=== PATIENT | female | born 1960 | race Hispanic/Latino ===

== ENCOUNTER 2017-06-19 06:25 | Day surgery (SDC) | payer MEDICAID ==
[2017-06-15 14:25] VITALS: BP 134/63
[2017-06-15 14:33] LABS: BASOPHILS % (AUTO) 0.8 % (0.0-5.0); EOSINOPHILS % (AUTO) 1.3 % (0.0-8.0); HEMATOCRIT 39.8 % (36-48); LYMPHOCYTES % (AUTO) 18.2 % (21.0-51.0); MEAN CORPUSCULAR HEMOGLOBIN 29.4 pg (27.0-33.0); MEAN CORPUSCULAR HGB CONC 33.3 g/dL (32.0-36.0); MEAN CORPUSCULAR VOLUME 88.4 fL (79-99); MONOCYTES % (AUTO) 5.5 % (3.0-13.0); NEUTROPHILS % (AUTO) 74.2 % (40.0-77.0); PLATELET COUNT (AUTO) 365 K/uL (130-400); WHITE BLOOD COUNT (AUTO) 15.1 K/uL (4.8-10.8)
[2017-06-15 14:39] LABS: APPEARANCE,URINE Clear (CLEAR); BILIRUBIN,URINE Negative (NEGATIVE); COLOR,URINE Yellow (YELLOW); GLUCOSE, URINE (UA) Negative (NEGATIVE); KETONES,URINE Negative (NEGATIVE); LEUKOCYTE ESTERASE ,URINE Trace (NEGATIVE); NITRATE,URINE Negative (NEGATIVE); OCCULT BLOOD,URINE Negative (NEGATIVE); PROTEIN,URINE Negative (NEGATIVE)
[2017-06-15 14:49] LABS: CREATININE 0.9 mg/dL (0.5-1.5)
[2017-06-15 15:01] LABS: BACTERIA,URINE Few /HPF (None Seen); RBC,URINE 0-1 /HPF (0-1); SQUAMOUS EPITHELIAL CELL,UR Few /HPF (0-2)
[~2017-06-19] VITALS: Ht 162.6 cm; Wt 134.2 kg
[2017-06-19] VITALS (13 sets, daily range): BP systolic 117–149; BP diastolic 50–93
[~2017-06-19 06:25] MED LIST: ALBU90AE IH; ASPI-555 PO; ESCI20TA36 PO; ESOM40CA PO; FURO20TA6 PO; PRAV20TA4 PO
[2017-06-19] MEDS ORDERED: LACTATED RINGERS 1000ML 1,000 ML IV ONE (07:21)
[2017-06-19] MEDS: CEFAZOLIN SODIUM 1 GM VIAL IVP SCH ×2 (08:00→09:32)
[2017-06-19] MEDS ORDERED: NEOSTIGMINE 5MG/5ML SYR IV ONE (09:03)
[2017-06-19] MEDS ORDERED: DEXAMETHASONE SOD PHOSPHATE 10MG/ML 1ML VIAL ONE (09:03)
[2017-06-19] MEDS ORDERED: LIDOCAINE PF 2% 5ML ABBOJECT ONE (09:03)
[2017-06-19] MEDS ORDERED: GLYCOPYRROLATE 0.2 MG/ML 5 ML VIAL ONE (09:03)
[2017-06-19] MEDS ORDERED: SUCCINYLCHOLINE 200MG/10ML SYR ONE (09:03)
[2017-06-19] MEDS ORDERED: PROPOFOL 10 MG/ML 20ML VIAL IV ONE (09:04)
[2017-06-19] MEDS ORDERED: MIDAZOLAM HCL 1 MG/ML 2ML VIAL ONE (09:04)
[2017-06-19] MEDS ORDERED: FENTANYL CITRATE PF 50 MCG/1 ML 2ML VIAL ONE (09:04)
[2017-06-19] MEDS ORDERED: BUPIVACAINE/PF 0.25% 30ML VIAL IJ ONE (09:43)
== END 2017-06-19 11:55 | disposition home or self-care (01) ==
LOC: DAH 06:25
PROVIDERS: ATTEND Surgery
DX: L05.91 Pilonidal cyst without abscess (principal); Z90.49 Acquired absence of other specified parts of digestive tract; Z90.710 Acquired absence of both cervix and uterus; Z96.652 Presence of left artificial knee joint; E66.01 Morbid (severe) obesity due to excess calories
CPT/HCPCS: 11771; 36415; 80048; 81001; 85025; 88305; A4218; J0330; J0690; J1100; J2001; J2250; J2704; J2710; J3010; J3490 ×2; J7120 ×2

== ENCOUNTER → 2018-05-21 | Outpatient (CLI) | payer MEDICAID ==
[~2018-05-21] VITALS: Ht 162.6 cm; Wt 127.9 kg
[~2018-05-21] MED LIST changes: +REGADENOSON 0.4 MG/5 ML PF SYG IVP SCH
== END | disposition home or self-care (01) ==
LOC: SHCH 07:54
PROVIDERS: ATTEND Internal Medicine Cardiovascular Disease
DX: R06.00 Dyspnea, unspecified (principal)
CPT/HCPCS: 78452; 93017; 96374; A9500 ×2; J2785

== ENCOUNTER → 2018-06-03 | Outpatient (CLI) | payer MEDICAID ==
[~2018-06-03] MED LIST changes: -REGADENOSON 0.4 MG/5 ML PF SYG IVP SCH
== END | disposition home or self-care (01) ==
LOC: SHCH 11:13
PROVIDERS: ATTEND Internal Medicine Cardiovascular Disease
DX: I51.7 Cardiomegaly (principal)
CPT/HCPCS: 93306

== ENCOUNTER → 2019-08-04 | Outpatient (CLI) | payer MEDICAID ==
[~2019-08-04] MED LIST changes: -ASPI-555 PO; +ASPI-556 PO; +IOHEXOL 350 MG/ML 100ML INFUS..BTL IV ONE
== END | disposition home or self-care (01) ==
LOC: RAH 09:37
PROVIDERS: ATTEND Internal Medicine Gastroenterology
DX: K76.0 Fatty (change of) liver, not elsewhere classified (principal); I70.0 Atherosclerosis of aorta; R16.0 Hepatomegaly, not elsewhere classified; Z90.710 Acquired absence of both cervix and uterus; Z90.49 Acquired absence of other specified parts of digestive tract
CPT/HCPCS: 74178; Q9967

== ENCOUNTER 2022-02-24 11:31 | Emergency (ER) | payer MEDICAID ==
[~2022-02-24] VITALS: Ht 162.6 cm; Wt 120.2 kg
[~2022-02-24 11:31] MED LIST changes: -ESCI20TA36 PO; +ESCI20TA38 PO; -IOHEXOL 350 MG/ML 100ML INFUS..BTL IV ONE
[2022-02-24] MEDS ORDERED: KETOROLAC 30MG VIAL (30MG/ML) IM SCH (16:00)
[2022-02-24] MEDS ORDERED: ORPHENADRINE CITRATE 30 MG/ML ML IM SCH (16:00)
[2022-02-24] MEDS ORDERED: GABAPENTIN 300 MG CAPSULE ONE (16:49)
[2022-02-24] MEDS ORDERED: DICL75TA5 PO (18:25)
[2022-02-24] MEDS ORDERED: METH-662 PO (18:25)
[2022-02-24 18:36] VITALS: BP 118/48
[2022-02-24] MEDS ORDERED: GABAPENTIN 300 MG CAPSULE PO SCH (21:00)
== END 2022-02-24 18:42 | disposition home or self-care (01) ==
LOC: EDH 11:31
DX: M25.551 Pain in right hip (principal); E11.9 Type 2 diabetes mellitus without complications; E78.00 Pure hypercholesterolemia, unspecified; F32.9 Major depressive disorder, single episode, unspecified; Z90.710 Acquired absence of both cervix and uterus; Z90.49 Acquired absence of other specified parts of digestive tract; Z79.899 Other long term (current) drug therapy; Z96.653 Presence of artificial knee joint, bilateral; Z79.82 Long term (current) use of aspirin; Y08.89XA Assault by other specified means, initial encounter; Y93.89 Activity, other specified; Y92.89 Other specified places as the place of occurrence of the external cause; Y99.8 Other external cause status
CPT/HCPCS: 99284; 74176; 73502; 96372; J1885; J2360

== ENCOUNTER → 2022-06-21 | Outpatient (CLI) | payer MEDICAID ==
[~2022-06-21] MED LIST changes: +DICL75TA5 PO; +METH-662 PO
== END | disposition home or self-care (01) ==
LOC: SHCH 12:30
PROVIDERS: ATTEND Internal Medicine Cardiovascular Disease
DX: I50.20 Unspecified systolic (congestive) heart failure (principal); E11.9 Type 2 diabetes mellitus without complications
CPT/HCPCS: 93306

== ENCOUNTER → 2022-06-26 | Outpatient (CLI) | payer MEDICAID | END | disposition home or self-care (01) | LOC: SHCH 13:34 | PROVIDERS: ATTEND Internal Medicine Cardiovascular Disease | DX: I87.2 Venous insufficiency (chronic) (peripheral) (principal); R06.9 Unspecified abnormalities of breathing | CPT/HCPCS: 93970 ==

== ENCOUNTER → 2022-06-29 | Outpatient (CLI) | payer MEDICAID ==
[2022-06-29 12:24] LABS: CREATININE 0.7 mg/dL (0.5-1.5); POTASSIUM 3.7 mmol/L (3.5-5.1)
== END | disposition home or self-care (01) ==
LOC: LAB 08:51
PROVIDERS: ATTEND Internal Medicine Cardiovascular Disease
DX: I51.7 Cardiomegaly (principal); E66.09 Other obesity due to excess calories
CPT/HCPCS: 36415; 80048

== ENCOUNTER → 2022-07-07 | Outpatient (CLI) | payer OTHER | END | disposition home or self-care (01) | LOC: OIH 11:06 | PROVIDERS: ATTEND Internal Medicine Cardiovascular Disease | DX: Z13.6 Encounter for screening for cardiovascular disorders (principal) | CPT/HCPCS: 75571 ==

== ENCOUNTER → 2022-07-31 | Outpatient (CLI) | payer MEDICAID ==
[~2022-07-31] MED LIST changes: +REGADENOSON 0.4 MG/5 ML PF SYG IVP ONE
== END | disposition home or self-care (01) ==
LOC: SHCH 08:17
PROVIDERS: ATTEND Internal Medicine Cardiovascular Disease
DX: I25.10 Atherosclerotic heart disease of native coronary artery without angina pectoris (principal)
CPT/HCPCS: 78452; 96374; 93017; J2785; A9500 ×2

== ENCOUNTER → 2024-03-28 | Outpatient (CLI) | payer MEDICAID ==
[~2024-03-28] MED LIST changes: -REGADENOSON 0.4 MG/5 ML PF SYG IVP ONE
--- NOTE | 2024-03-28 11:45 | HMCIMG ---
US VENOUS DOPPLER UNILATERAL REASON: acute embolism and thrombosis of deep veins COMPARISON: None Technique: Bilateral venous doppler ultrasound was performed with spectral analysis and color flow imaging technique. FINDINGS: There is a normal appearance of the common femoral, deep femoral, the profunda femoris and popliteal veins. Proximal calf veins appear normal as well. There is normal response to compression and augmentation. There is no evidence of deep venous thrombosis. IMPRESSION: 1. No evidence of deep venous thrombosis in the left lower extremity. 2. Small fluid in collection in the left anterolateral knee, 6 x 9 mm.
== END | disposition home or self-care (01) ==
LOC: RAH 10:42
PROVIDERS: ATTEND Internal Medicine Cardiovascular Disease
DX: I82.403 Acute embolism and thrombosis of unspecified deep veins of lower extremity, bilateral (principal); M25.462 Effusion, left knee
CPT/HCPCS: 93971